=== PATIENT | female | born 1955 | race Hispanic/Latino ===

== ENCOUNTER 2016-08-12 10:47 | Outpatient (CLI) | payer OTHER ==
--- NOTE | 2016-08-12 16:05 | Cat Scan Report ---
CT of the abdomen and pelvis with IV and oral contrast. Findings: A calcified granuloma is noted in the lateral aspect of the left lower lobe. There are 3 hypodense lesions within the liver the largest of which is in the medial aspect of the right lobe measuring 2.3 cm in diameter. 2 subcentimeter hypodense lesions are seen in the superior aspect of the left and right lobes of the liver respectively. On delayed images, the largest of the 3 lesions described in the medial right lobe demonstrates uniform internal enhancement which is iso-dense with the adjacent liver parenchyma. The 2 smaller lesions do not exhibit enhancement. The spleen and pancreas are normal. The gallbladder is unremarkable. There are small bilateral renal cysts. No hydronephrosis is seen. There are no pelvic masses or abnormal fluid collections. No mesenteric inflammatory changes are seen. There is no evidence of appendicitis. No significant bony findings are seen. Impression #1. Left lower lobe pulmonary granuloma. 2. The enhancing liver lesion in the medial aspect of the right lobe of the liver probably represents a cavernous hemangioma. 2 subcentimeter cysts are also described. 3. Multiple subcentimeter bilateral renal cysts.
== END 2016-08-12 10:48 | disposition home or self-care (01) ==
LOC: CT 10:47
PROVIDERS: ATTEND Internal Medicine Gastroenterology
DX: N28.1 Cyst of kidney, acquired (principal); J84.10 Pulmonary fibrosis, unspecified; F41.9 Anxiety disorder, unspecified; R19.7 Diarrhea, unspecified
CPT/HCPCS: 36415; 74177; 82565; 84520; Q9966

== ENCOUNTER 2017-07-01 14:11 | Outpatient (CLI) | payer OTHER ==
--- NOTE | 2017-07-01 14:57 | Mammography Report ---
BILATERAL MAMMOGRAM: FINDINGS: There are scattered fibroglandular densities (approximately 25%-50% glandular). No mass, distortion, suspicious calcification, or skin change is seen. CAD was utilized. IMPRESSION: Negative mammogram. There is no mammographic evidence of malignancy. RECOMMENDATION: Follow-up per ACS guidelines. BI-RADS CATEGORY: 1 = Negative ACR BI-RADS MAMMOGRAPHIC CODES: 0 = Needs additional imaging evaluation; 1 = Negative; 2 = Benign; 3 = Probably benign; 4 = Suspicious; 5 = Malignant; 6 = Known biopsy-proven malignancy COMMENT: 1. Dense breast tissue, i.e., adenosis, fibrocystic changes, etc., may obscure an underlying neoplasm. 2. Approximately 10% of cancers are not detected with mammography. 3. A negative mammography report should not delay biopsy if a clinically suspicious mass is present. COMMENT: Patient follow-up letters are generated in [facility].
== END 2017-07-01 14:12 | disposition home or self-care (01) ==
LOC: SPVWC 14:11
PROVIDERS: ATTEND Family Medicine
DX: Z12.31 Encounter for screening mammogram for malignant neoplasm of breast (principal)
CPT/HCPCS: 77067

== ENCOUNTER 2018-04-14 14:40 | Outpatient (CLI) | payer OTHER ==
--- NOTE | 2018-04-15 07:59 | Mammography Report ---
BONE DENSITY STUDY: Osteoporosis screening. DEFINITIONS: BMD = Bone Mineral Density T-score = BMD related to mean peak bone mass of young adult (mean expressed in Standard Deviation) Z-score = Age matched BMD expressed in SD World Health Organization (WHO) Diagnostic Criteria Normal T-score > -1 SD Osteopenia T-score between -1 and -2.4 SD Osteoporosis T-score -2.5 SD or below FINDINGS: The weighted average BMD of lumbar spine L1-L4 is 1.187 with a T-score of 1.3. The weighted average BMD of the right hip is 0.857 with a T-score of -0.7. IMPRESSION: The patient's average T-score is diagnostic for normal bone density and low relative risk for fracture. NOTE: BMD is not the only risk factor for fracture; also consider factors such as the patient's age, risk of falling, previous osteoporotic fracture, family history of osteoporotic fractures, current smoker, and low body weight. English's triangle is a region of interest in femur, predominantly of trabecular bone. It is not a true anatomic site, and [facility] does not recommend its use clinically.
== END 2018-04-14 14:41 | disposition home or self-care (01) ==
LOC: SPVWC 14:40
PROVIDERS: ATTEND Family Medicine
DX: Z13.820 Encounter for screening for osteoporosis (principal)
CPT/HCPCS: 77080

== ENCOUNTER 2018-07-12 09:53 | Outpatient (CLI) | payer OTHER ==
--- NOTE | 2018-07-12 11:53 | Mammography Report ---
BILATERAL DIGITAL SCREENING MAMMOGRAM with CAD: 07/12/18 09:53:00 CLINICAL: Routine screening. COMPARISON:07/01/17 FINDINGS: The breasts are heterogeneously dense, which may obscure small masses. No mass, architectural distortion or suspicious calcifications. IMPRESSION: No mammographic evidence of malignancy. BI-RADS CATEGORY: 1 - - Negative RECOMMENDATION: Routine mammographic screening in one year. COMMENT: Patient follow-up letters are generated by our [employer] application.
== END 2018-07-12 09:54 | disposition home or self-care (01) ==
LOC: SPVWC 09:53
PROVIDERS: ATTEND Family Medicine
DX: Z12.31 Encounter for screening mammogram for malignant neoplasm of breast (principal)
CPT/HCPCS: 77067